=== PATIENT | female | born 1935 | race American Indian/Alaskan Native ===

== ENCOUNTER 2017-04-23 08:07 | Outpatient (CLI) | payer MEDICARE ==
--- NOTE | 2017-04-23 12:32 | Ultrasound Report ---
ULTRASOUND RENAL BILATERAL HISTORY: Kidney disease. TECHNIQUE: transabdominal ultrasound with color Doppler interrogation. FINDINGS: The right kidney measures 7.9cm. Right renal cortex: 1.2cm. The left kidney measures 8.1cm. Left renal cortex: 1.3cm. Both kidneys are slightly atrophic. No evidence for cystic disease, calculus, mass or hydronephrosis. The bladder is partially distended but within normal limits. IMPRESSION: Mild chronic renal parenchymal disease.
== END 2017-04-23 08:08 | disposition home or self-care (01) ==
LOC: US 08:07
PROVIDERS: ATTEND Family Medicine
DX: I12.9 Hypertensive chronic kidney disease with stage 1 through stage 4 chronic kidney disease, or unspecified chronic kidney disease (principal); N18.9 Chronic kidney disease, unspecified
CPT/HCPCS: 76770